=== PATIENT | female | born 2000 | race Asian ===

== ENCOUNTER 2024-09-08 08:36 | Outpatient (REF) | payer OTHER, SELFPAY ==
--- NOTE | ~2024-09-08 | US_ITS ---
EXAMINATION: US RETROPERITONEAL COMPLETE (RENAL) CLINICAL INFORMATION: Hematuria. COMPARISON: None available. TECHNIQUE: Real-time imaging of the kidneys and bladder. FINDINGS: RIGHT KIDNEY: 9.6 x 4.3 x 5.6 cm (SAG x AP x TRV). The kidney is normal in size, contour, and echogenicity. Renal cortical thickness is normal. No focal parenchymal lesions. There is a 6 x 3 x 4 mm echogenic focus seen in the mid to lower right kidney consistent with a nonobstructing calculus. No hydronephrosis. LEFT KIDNEY: 10.3 x 4.7 x 4.8 cm (SAG x AP x TRV). The kidney is normal in size, contour, and echogenicity. Renal cortical thickness is normal. No calculi or focal parenchymal lesions. No hydronephrosis. BLADDER: Well distended containing some debris. Bilateral ureteral jets are demonstrated. Prevoid bladder volume is 182 mL. Postvoid bladder volume is 3 mL. US/US retroperitoneal comp IMPRESSION: Nonobstructing 6 mm right renal calculus. Electronically signed by: Herminio Perrin MD 09/09/2024 09:10 AM EST
== END 2024-09-08 08:37 | disposition home or self-care (01) ==
LOC: HO.UMASIMG 08:36
PROVIDERS: Visit Provider Family Medicine
DX: R31.9 Hematuria, unspecified (principal)
CPT/HCPCS: 76770